=== PATIENT | female | born 1990 | race Caucasian/White ===

== ENCOUNTER → 2024-05-31 15:20 | Outpatient (REF) | payer BC, SELFPAY | LOC: PNTC 15:20 | PROVIDERS: ATTENDING PHYSICIAN Obstetrics & Gynecology | DX: O09.519 Supervision of elderly primigravida, unspecified trimester (principal); Z36.9 Encounter for antenatal screening, unspecified; O09.529 Supervision of elderly multigravida, unspecified trimester | CPT/HCPCS: 76801; 76813 ==

== ENCOUNTER → 2024-07-26 16:20 | Outpatient (REF) | payer BC, SELFPAY | LOC: PNTC 16:20 | PROVIDERS: ATTENDING PHYSICIAN Obstetrics & Gynecology | DX: O09.519 Supervision of elderly primigravida, unspecified trimester (principal) | CPT/HCPCS: 76811 ==

== ENCOUNTER → 2024-09-06 11:47 | Outpatient (REF) | payer OTHER, SELFPAY | LOC: PNTC 11:47 | PROVIDERS: ATTENDING PHYSICIAN Obstetrics & Gynecology | DX: O99.519 Diseases of the respiratory system complicating pregnancy, unspecified trimester (principal) | CPT/HCPCS: 76816 ==

== ENCOUNTER → 2024-09-22 13:52 | Outpatient (REF) | payer OTHER, SELFPAY | LOC: PNTC 13:52 | PROVIDERS: ATTENDING PHYSICIAN Student in an Organized Health Care Education/Training Program | DX: O09.529 Supervision of elderly multigravida, unspecified trimester (principal) | CPT/HCPCS: 36415; 86850; 86900; 86901; 96372; J2790 ==

== ENCOUNTER → 2024-10-21 16:23 | Outpatient (REF) | payer OTHER, SELFPAY | LOC: PNTC 16:23 | PROVIDERS: ATTENDING PHYSICIAN Obstetrics & Gynecology | DX: O09.519 Supervision of elderly primigravida, unspecified trimester (principal) | CPT/HCPCS: 76816 ==

== ENCOUNTER 2024-12-07 16:29 | Inpatient (IN) | payer OTHER, SELFPAY ==
[2024-12-07 16:41] VITALS: BP 97/48; BMI 27.5
[2024-12-07 17:16] LABS: % Basophils 0.2 % (0-2); % Immature Granulocytes 0.6 % (0-0.5); % Lymphocytes 11.3 % (20.5-51.1); % Monocytes 4.3 % (1.7-9.3); % Neutrophils 83.6 % (42.2-75.2); Absolute Immature Granulocytes 0.1 10^3/uL (0-0.05); Absolute Lymphocytes 1.6 10^3/uL (1.2-3.4); Absolute Monocytes 0.6 10^3/uL (0.1-0.6); Absolute Neutrophils 11.5 10^3/uL (1.4-6.5); Hemoglobin 13.4 g/dL (12.0-16.0); Mean Corp Hgb Conc. 35.3 g/dL (33.0-37.0); Mean Corpuscular Hgb 31.5 pg (27.0-31.0); Mean Corpuscular Volume 89.4 fL (81.0-99.0); Mean Platelet Volume 11.8 fL (7.4-10.4); Nucleated Red Blood Cells % 0 %; Platelet Count 147 10^3/uL (130-400); Red Blood Cell Count 4.25 10^6/uL (4.20-5.40); Red Cell Dist. Width 12.3 % (11.5-14.5); White Blood Cell Count 13.8 10^3/uL (4.8-10.8)
[2024-12-07] MEDS: PRENATAL PLUS PO (19:21)
[2024-12-07] MEDS: MOTRIN 600 MG PO (19:36)
[2024-12-08] MEDS: MOTRIN 600 MG PO (04:43)
[2024-12-08 04:51] LABS: Hematocrit 34.3 % (37.0-47.0)
[2024-12-08] MEDS: SENOKOT-S 1 TABLET PO (09:25)
[2024-12-08] MEDS: PRENATAL PLUS 1 TABLET PO (09:25)
[2024-12-08] MEDS: RHOGAM 300 MCG IM (11:52)
[2024-12-08] MEDS: TYLENOL 650 MG PO ×2 (14:41→23:18)
[2024-12-09] MEDS: TYLENOL 650 MG PO ×2 (03:28→10:38)
--- NOTE | 2024-12-09 03:30 | DOWNTIME ---
There was a [facility] Downtime on 12/09/2024 from 0200 to 12/10/2023 at 0318 . Downtime documentation of patient's care, including medication administrations, has been reconciled in the electronic record per guidelines. Refer to the
patient's paper chart under the miscellaneous tab to see printed paper medication records and downtime forms.
[2024-12-09] MEDS: PRENATAL PLUS 1 TABLET PO (10:37)
[2024-12-09] MEDS: SENOKOT-S 1 TABLET PO (10:37)
[2024-12-09 13:21] LABS: Syphilis/T. pallidum Ab Reflex Negative (Negative)
== END 2024-12-09 13:40 | disposition home or self-care (01) | DRG 807 ==
LOC: LDRP 16:29
PROVIDERS: ADMITTING PHYSICIAN Obstetrics & Gynecology; FAMILY PHYSICIAN Internal Medicine
PROC: 0KQM0ZZ Repair Perineum Muscle, Open Approach (ICD-10-PCS; 2024-12-07)
PROC: 10E0XZZ Delivery of Products of Conception, External Approach (ICD-10-PCS; 2024-12-07)
PROC: 4A1HXCZ Monitoring of Products of Conception, Cardiac Rate, External Approach (ICD-10-PCS; 2024-12-07)
PROC: 3E0234Z Introduction of Serum, Toxoid and Vaccine into Muscle, Percutaneous Approach (ICD-10-PCS; 2024-12-08)
DX: O26.893 Other specified pregnancy related conditions, third trimester (principal); Z37.0 Single live birth; O70.1 Second degree perineal laceration during delivery; Z3A.39 39 weeks gestation of pregnancy; Z67.41 Type O blood, Rh negative
CPT/HCPCS: 36415; 85014; 85018; 85025; 85461; 86780; 86850; 86870; 86900; 86901; J2790